=== PATIENT | female | born 1950 | race American Indian/Alaskan Native ===

== ENCOUNTER 2017-03-31 09:38 | Outpatient (CLI) | payer MEDICARE ==
--- NOTE | 2017-03-31 10:48 | Mammography Report ---
BILATERAL MAMMOGRAM: FINDINGS: The breast tissue is heterogeneously dense, which could obscure detection of small masses (approximately 50%-75% glandular). No mass, distortion, suspicious calcification, or skin change is seen. No significant changes compared to prior exams dating back to March 2015. CAD was utilized. IMPRESSION: Negative mammogram. There is no mammographic evidence of malignancy. RECOMMENDATION: Follow-up per ACS guidelines. BI-RADS CATEGORY: 1 = Negative ACR BI-RADS MAMMOGRAPHIC CODES: 0 = Needs additional imaging evaluation; 1 = Negative; 2 = Benign; 3 = Probably benign; 4 = Suspicious; 5 = Malignant; 6 = Known biopsy-proven malignancy COMMENT: 1. Dense breast tissue, i.e., adenosis, fibrocystic changes, etc., may obscure an underlying neoplasm. 2. Approximately 10% of cancers are not detected with mammography. 3. A negative mammography report should not delay biopsy if a clinically suspicious mass is present. COMMENT: Patient follow-up letters are generated in [email or web address].
== END 2017-03-31 09:39 | disposition home or self-care (01) ==
LOC: MAMMO 09:38
PROVIDERS: ATTEND Family Medicine
DX: Z12.31 Encounter for screening mammogram for malignant neoplasm of breast (principal); I10 Essential (primary) hypertension
CPT/HCPCS: 77067; G0202

== ENCOUNTER 2017-08-16 10:14 | Outpatient (CLI) | payer MEDICARE ==
[2017-08-16 10:45] LABS: Blood Urea Nitrogen 9 mg/dL (7-17)
--- NOTE | 2017-08-16 14:02 | Magnetic Resonance Report ---
MRI BRAIN WITH/WITHOUT CONTRAST: History: Headache, unstable gait, dizziness. Comparison: No relevant comparisons at this facility. Technique: Multiple T1 and T2 weighted images were obtained in multiple planes. Axial diffusion and gradient imaging was performed. Post contrast T1 images in two planes were obtained following IV gadolinium. Findings: There are moderate nonspecific T2 signal abnormalities in the white matter bilaterally. These findings could be related to chronic small vessel disease, hypertension, diabetes, demyelination and many other etiologies. None of these areas enhance suggesting a chronic process. Otherwise, the brain parenchyma demonstrates normal signal on all sequences. No diffusion restriction, hemorrhage, mass effect or extra-axial fluid collection. Ventricular size is normal and symmetric. The basal cisterns are clear. The brainstem and cerebellar hemispheres are within normal limits. The fourth ventricle is midline. The paranasal sinuses and mastoid air cells are well aerated. Normal flow voids are identified in the appropriate vessels at the craig of [place]. No abnormal enhancement is identified following IV gadolinium. Impression: Nonspecific chronic white matter changes as described. No evidence for an acute process or abnormal enhancement.
== END 2017-08-16 10:15 | disposition home or self-care (01) ==
LOC: MRI 10:14
PROVIDERS: ATTEND Family Medicine
DX: R90.82 White matter disease, unspecified (principal); R42 Dizziness and giddiness; R26.81 Unsteadiness on feet; R51 Headache
CPT/HCPCS: 36415; 70553; 82565; 84520; A9577

== ENCOUNTER 2018-04-04 07:56 | Outpatient (CLI) | payer MEDICARE ==
--- NOTE | 2018-04-04 09:12 | Mammography Report ---
Screening mammogram: The breast pattern is heterogeneously dense and symmetrically distributed bilaterally. There is no focal mass nor architectural distortion appreciated. Several tight clusters of microcalcifications are identified in the upper outer right breast which appear to have remained generally stable since prior examinations dating back to at least 2016 and possibly 2015. No overtly suspicious characteristics. The findings are not otherwise remarkable. CAD used. Impression: Seemingly stable groupings of benign-appearing right breast microcalcifications. Recommendation: Annual mammogram followup. BI-RADS CATEGORY: 2 = Benign ACR BI-RADS MAMMOGRAPHIC CODES: 0 = Needs additional imaging evaluation; 1 = Negative; 2 = Benign; 3 = Probably benign; 4 = Suspicious; 5 = Malignant; 6 = Known biopsy-proven malignancy COMMENT: 1. Dense breast tissue, i.e., adenosis, fibrocystic changes, etc., may obscure an underlying neoplasm. 2. Approximately 10% of cancers are not detected with mammography. 3. A negative mammography report should not delay biopsy if a clinically suspicious mass is present.
== END 2018-04-04 07:57 | disposition home or self-care (01) ==
LOC: MAMMO 07:56
PROVIDERS: ATTEND Obstetrics & Gynecology
DX: Z12.31 Encounter for screening mammogram for malignant neoplasm of breast (principal); I10 Essential (primary) hypertension
CPT/HCPCS: 77067

== ENCOUNTER 2019-04-06 09:04 | Outpatient (CLI) | payer MEDICARE ==
--- NOTE | 2019-04-06 15:06 | Mammography Report ---
DIGITAL SCREENING MAMMOGRAM WITH CAD, 04/06/2019 INDICATION: Routine screening mammography. TECHNIQUE: Digital bilateral 2D mammography was obtained in the craniocaudal and mediolateral obliq ue projections. This examination was interpreted with the benefit of Computer-Aided Detection analysi s. COMPARISON: 04/04/2018 FINDINGS: Breast Density: The breasts are heterogeneously dense, which may obscure small masses. There is no evidence of dominant mass, suspicious calcifications or architectural distortion in eithe r breast. Stable bilateral calcifications with benign morphology. There are greater number of calcifi cations in the upper outer right breast and they are largely amorphous. IMPRESSION: No mammographic evidence of malignancy. Follow up recommendation: Routine yearly BI-RADS Category 2: Benign. A "normal" or negative report should not discourage follow up or biopsy of a clinically significant f inding. A written summary of these findings will be mailed to the patient. The patient will be entered into a mammography reporting system which will generate a reminder letter for the patient's next appointmen t at the appropriate interval. The [employer] recommends yearly mammograms starting at age 40 and continuing as l man as a woman is in good health. Breast MRI is recommended for women with an approximate 20-25% or greater lifetime risk of breast cancer, including women with a strong family history of breast or ova herman cancer or who have been treated for Hodgkin's disease. Signer Name: Jose De Jesus Kyle MD Signed: 04/06/2019 3:02 PM Workstation Name: [id number]
== END 2019-04-06 09:05 | disposition home or self-care (01) ==
LOC: MAMMO 09:04
PROVIDERS: ATTEND Obstetrics & Gynecology
DX: Z12.31 Encounter for screening mammogram for malignant neoplasm of breast (principal); I10 Essential (primary) hypertension
CPT/HCPCS: 77067

== ENCOUNTER 2020-04-09 09:09 | Outpatient (CLI) | payer MEDICARE ==
--- NOTE | 2020-04-09 10:15 | Mammography Report ---
DIGITAL SCREENING MAMMOGRAM WITH CAD, 04/09/2020 INDICATION: Routine screening mammography. TECHNIQUE: Digital bilateral 2D mammography was obtained in the craniocaudal and mediolateral obliq ue projections. This examination was interpreted with the benefit of Computer-Aided Detection analysi s. COMPARISON: 04/06/2019, 04/04/2018 FINDINGS: Breast Density: The breasts are heterogeneously dense, which may obscure small masses. Pleomorphic calcifications in the upper outer quadrant anterior/middle depth of the right breast have increased in number. No other significant abnormality of the right breast. Stable nodule/node in the 3:00 position anterior depth of the left breast. Stable left breast calcifications. No other signifi cant abnormality of the left breast. IMPRESSION: Suspicious right breast calcifications. A diagnostic right mammogram with magnification views is gissel mmended for further evaluation. Follow up recommendation: Special View: Mag Category 0: Incomplete. Needs additional imaging evaluation and/or prior mammograms for comparison. A "normal" or negative report should not discourage follow up or biopsy of a clinically significant f inding. A written summary of these findings will be mailed to the patient. The patient will be entered into a mammography reporting system which will generate a reminder letter for the patient's next appointmen t at the appropriate interval. The [employer] recommends yearly mammograms starting at age 40 and continuing as l man as a woman is in good health. Breast MRI is recommended for women with an approximate 20-25% or greater lifetime risk of breast cancer, including women with a strong family history of breast or ova herman cancer or who have been treated for Hodgkin's disease. Signer Name: Rigoberto Foster MD Signed: 04/09/2020 10:10 AM Workstation Name: [id number]
== END 2020-04-09 09:10 | disposition home or self-care (01) ==
LOC: MAMMO 09:09
PROVIDERS: ATTEND Obstetrics & Gynecology
DX: Z12.31 Encounter for screening mammogram for malignant neoplasm of breast (principal); N60.01 Solitary cyst of right breast; N64.89 Other specified disorders of breast
CPT/HCPCS: 77067

== ENCOUNTER 2020-05-15 09:21 | Outpatient (CLI) | payer MEDICARE ==
--- NOTE | 2020-05-15 10:31 | Mammography Report ---
DIGITAL DIAGNOSTIC MAMMOGRAM, -- 05/15/2020 INDICATION: Follow-up of indeterminate right breast calcifications. TECHNIQUE: Digital right mammographic imaging was performed. Magnification views were obtained. COMPARISON: 04/06/2019, 04/04/2018 FINDINGS: Breast Density: The breast is heterogeneously dense, which may obscure small masses. Previously described pleomorphic calcifications in the upper outer quadrant depth of the right breast are again seen without a suspicious associated mass or area of architectural distortion. IMPRESSION: Suspicious right breast calcifications should be further evaluated with stereotactic biopsy. Recommended Follow-Up: Biopsy BI-RADS Category 4: Suspicious for Malignancy. A "normal" or negative report should not discourage follow up or biopsy of a clinically significant f inding. A written summary of these findings will be mailed to the patient. The patient will be entered into a mammography reporting system which will generate a reminder letter for the patient's next appointmen t at the appropriate interval. According to the [employer], yearly mammograms are recommended starting at age 40 and continuing as long as a woman is in good health. Breast MRI is recommended for women with an shoaib roximately 20-25% or greater lifetime risk of breast cancer, including women with a strong family his tory of breast or ovarian cancer and women who have been treated for Hodgkin's disease. Signer Name: Rigoberto Foster MD Signed: 05/15/2020 10:27 AM Workstation Name: [email or web address] [id number]
== END 2020-05-15 09:22 | disposition home or self-care (01) ==
LOC: MAMMO 09:21
PROVIDERS: ATTEND Obstetrics & Gynecology
DX: R92.8 Other abnormal and inconclusive findings on diagnostic imaging of breast (principal)

== ENCOUNTER 2020-05-28 13:10 | Outpatient (CLI) | payer MEDICARE ==
--- NOTE | 2020-05-28 16:17 | Mammography Report ---
RIGHT DIAGNOSTIC MAMMOGRAM INDICATION: Recent right breast stereotactic biopsy of calcifications. COMPARISON: 05/15/2020, 04/09/2020. FINDINGS: Right breast CC and ML mammograms were obtained. These document accurate location of a biop sy marker in the right lateral breast at middle depth at the site of recent stereotactic biopsy. Resi dual calcifications persist. IMPRESSION: Mammographic images documenting accurate location of recent right lateral breast stereotactic biopsy. BI-RADS Category 4: Suspicious for Malignancy. Signer Name: Kyle Becerra MD Signed: 05/28/2020 4:12 PM Workstation Name: [id number]
--- NOTE | 2020-05-28 16:32 | Mammography Report ---
PERCUTANEOUS STEREOTACTIC-GUIDED RIGHT BREAST BIOPSY WITH MARKER PLACEMENT HISTORY: Right breast calcifications. CONSENT: Technique, risks and alternatives were discussed with the patient and informed written conse nt obtained. PROCEDURE: The patient was placed in the prone position on the Siemens biopsy table. The calcifications in the r ight lateral breast were targeted mammographically. Fire Prevention Officer and stereo pair images were acquired to gen erate the computer-derived coordinates for targeting. The skin overlying the chosen biopsy site were cleansed with Betadine. The skin and superficial soft tissues were anesthetized with a small amount of buffered 1% lidocaine. The deeper soft tissues were anesthetized with buffered 1% lidocaine with epinephrine. A small dermatotomy was created through which the Atec biopsy device was placed. Pre and post fire st ereo pair images were acquired to confirm appropriate needle trajectory. Using vacuum assistance, mul tiple core specimen samples were acquired. A post procedure stereo pair image suggested adequate samp ling of the target. A post procedure specimen radiograph confirmed calcifications within core specime n samples. A biopsy marker was deposited at the biopsy site. Manual pressure was applied at the biopsy site to achieve hemostasis. The incision margins were appro ximated with Steri-Strips. A post procedure left breast mammogram was acquired. Postprocedure care in structions were administered in both verbal and written forms. The patient voiced understanding and d eparted the [facility] in stable, satisfactory condition. POST PROCEDURE RIGHT BREAST MAMMOGRAM: Digital CC and MLO views demonstrate the biopsy marker to lie within the lateral position of the breast with persistent adjacent calcifications present. IMPRESSION Technically successful stereotactic biopsy of right lateral breast calcifications with accurate biops y marker placement. An addendum will be added to this report once pathology results are available. Signer Name: yKle Becerra MD Signed: 05/28/2020 4:27 PM Workstation Name: [id number]
== END 2020-05-28 13:11 | disposition home or self-care (01) ==
LOC: SPVWC 13:10
PROVIDERS: ATTEND Surgery
DX: R92.1 Mammographic calcification found on diagnostic imaging of breast (principal); R92.8 Other abnormal and inconclusive findings on diagnostic imaging of breast; I10 Essential (primary) hypertension
CPT/HCPCS: 19081; 77065; 88305; A4648; 88341; 88342

== ENCOUNTER 2020-06-25 09:17 | Outpatient (CLI) | payer MEDICARE | END 2020-06-25 09:18 | disposition home or self-care (01) | LOC: SPVIMAG 09:17 | PROVIDERS: ATTEND Surgery | DX: C50.411 Malignant neoplasm of upper-outer quadrant of right female breast (principal) | CPT/HCPCS: A9577; C8908; 77049 ==

== ENCOUNTER → 2020-07-28 | Day surgery (SDC) | payer MEDICARE ==
[~2020-07-28] MED LIST: ACETAMINOPHEN 325 MG TAB PO NR; BACITRACIN ZINC OINT 28.4 GM TP ONE; BUPIVACAINE-EPINEPHRINE/PF 0.25%-1:200,000 (30 ML) VIAL INFILTRATI ONE; GABAPENTIN 500 MG/10 ML ORAL LIQD PO NR; GLYCOPYRROLATE 0.4 MG/2 ML INJ ONE; HYDROmorphone 1 MG/1 ML INJ IV PRN; HYDROmorphone 1 MG/1 ML INJ ONE; LACTATED RINGERS 1,000 ML IV SCH; LACTATED RINGERS 1,000 ML ONE; LIDOCAINE (1%) 10 MG/1 ML VIAL 20 ML MDV ONE; LIDOCAINE MPF (2%) 20 MG/1 ML VIAL 5 ML ONE; MAGNESIUM OXIDE 400 MG TAB PO NR; METHYLENE BLUE 50 MG/10 ML AMP IRRIGATION ONE; METHYLENE BLUE 50 MG/10 ML AMP ONE; MIDAZOLAM 2 MG/2 ML INJ IV NR; NEOSTIGMINE 10MG/10 ML INJ MDV ONE; ONDANSETRON 4 MG/2 ML INJ IV PRN; ONDANSETRON 4 MG/2 ML INJ ONE; PHENYLEPHRINE/NS 1,000 MCG/10 ML SYRINGE (OR USE) IV ONE; ROCURONIUM 50 MG/5 ML INJ IV ONE; SODIUM CHLORIDE 0.9% P/F 10 ML VIAL INFILTRATI ONE; WATER FOR IRRIG STERILE 1,500 ML BOTTLE IR ONE; ceFAZolin/STERILE WATER 2 GM/20 ML SYRINGE IV NR; dexAMETHasone 20 MG/5 ML VIAL ONE; dexAMETHasone 4 MG/ML VIAL ONE; fentaNYL 100 MCG/2 ML INJ IV NR; propofoL 200 MG/20 ML VIAL IV ONE
--- NOTE | 2020-07-28 09:52 | Anesthesia Day of Surgery ---
Anesthesia Day of Surgery - Day of Surgery Patient Examined: Yes Patient H&P Reviewed: Yes Patient is NPO: Yes Cardiac Clearance: Yes
--- NOTE | 2020-07-28 09:53 | Anesthesia Consultation ---
Anesthesia Consult and Med Hx Date of service: 07/28/20 - Airway Anesthetic Teeth Evaluation: Chipped ROM Head & Neck: Adequate Mental/Hyoid Distance: Adequate Mallampati Class: Class III Intubation Access Assessment: Probably Good - Pre-Operative Health Status ASA Pre-Surgery Classification: ASA3 Proposed Anesthetic Plan: General Nerve Block: ES/PECS - Pulmonary Hx Smoking: No Hx Asthma: No Hx Respiratory Symptoms: No (+2FS) COPD: No Hx Pneumonia: No Hx Sleep Apnea: Yes (DX SLEEP APNEA WITH CPAP USE.) - Cardiovascular System Hx Hypertension: Yes (GOES UP AND DOWN) Hx Heart Attack/AMI: No (+Cardiac Clearance) Hx Pacemaker: No Hx Internal Defibrillator: No Hx Heart Murmur: No - Central Nervous System Hx Seizures: No Hx Back Pain: Yes (NUMBNESS,PAIN ARMS-TINGLING RT HAND) Hx Psychiatric Problems: Yes - Gastrointestinal Hx Gastroesophageal Reflux Disease: Yes (Rare-dietary) - Endocrine Hx End Stage Renal Disease: No Hx Cirrhosis: No Hx Liver Disease: No Hx Non-Insulin Dependent Diabetes: No Hx Thyroid Disease: No - Hematic Hx Anemia: No Hx Sickle Cell Disease: No - Other Systems Hx Alcohol Use: No Hx Substance Use: No Hx Cancer: Yes Hx Obesity: No - Additional Comments Anesthesia Medical History Comments: NO BLOOD
--- NOTE | 2020-07-28 10:14 | Mammography Report ---
RIGHT BREAST NEEDLE LOCALIZATION USING X-RAY GUIDANCE The procedure was explained to the patient and informed consent obtained. PROCEDURE: Using 5 mL of 1% buffered lidocaine, a 25 gauge needle and x-ray guidance, the large area of pleomorphic calcifications in the lateral right breast were bracketed using 2 separate 7.5 cm loc alization wires. Appropriate placement of these wires was discussed with Dr. Amaro and Dr. Grey on. There were no immediate complications. INTERPRETATION: 7 images made during the procedure demonstrate the needle to be properly positioned. IMPRESSION: Successful right breast lesion localization as described above. Thank you for allowing us to participate in the care of your patient. Signer Name: Madhav Vanessa Jr, MD Signed: 07/28/2020 10:10 AM Workstation Name: [id number]
--- NOTE | 2020-07-28 14:55 | Operative Report ---
Operative Report Operative Report: Operative Report: July 28, 2020 Preoperative diagnosis: Right breast cancer of the upper outer quadrant Postoperative diagnosis: Same Procedure: Right breast needle localization partial mastectomy of the upper outer quadrant with SLNB Surgeon: Maria Teresa Amaro MD Lime Slaker: Dorinda Ferrer Anesthesia: General Findings: Right wires and clip present within radiograph specimen; x2 SLNs Complications: None EBL: Less than 50 cc Disposition: PACU in good condition Indications for operative procedure: This is a 70 year old lady with newly diagnosed Stage 0 right breast cancer of the upper outer quadrant, Stage 0 [id number] ER positive. Recommendations are to proceed with breast conservation with bracketing of the area of known malignancy and patient understood if margins were positive additional surgery indicated that may include a right total mastectomy. Breast MRI with findings of 6.5 cm area of nonmass enhancement. Radiology to place wire bracket at location of known cancer and additional area of suspicious microcalcifications correlating to nonmass enhancement on breast MRI. She understands the role of adjuvant radiation therapy and Oncotype DX will be obtained by medical oncology if invasive carcinoma identified on final pathology. She wished to proceed with the above procedure. Procedure in detail: The patient was taken to radiology for wire placement for localization known area of cancer and area of microcalifications correlating to nonmass enhancment seen on breast MRI. Anesthesia placed right pectoral block. Patient was then taken to the operating room. Gen. anesthesia was administered. The right nipple was injected with radioisotope and 1 cc of methylene blue dye. Right breast and axilla were prepped and draped in the normal sterile operative fashion. The wires were identified. Timeout was performed. Gamma probe was inserted into the axilla. The area of hot spot was identified. A right axillary incision was made with a 15 blade knife with dissection taken down to the subcutaneous tissues. The axillary fascia was opened with the Bovie cautery. 2 SLNs were identified and dissected free. All remaining counts were less than 10% of the highest count. Lymph nodes were sent to pathology for permanent processing. Hemostasis was obtained in the right axillary cavity. Axillary cavity was appropriately irrigated and suctioned. Hemostasis was noted. Axillary fascia was approximated and closed using interrupted 3-0 Vicryl and the skin brought together and closed using a running 4-0 Monocryl followed by skin affix. Attention was then taken towards the right breast. Lateral breast incision around 9:00 position was made with a 15 blade knife and dissection taken down to subcutaneous tissues. First began raising of the lateral flap with removal of the wire from the skin with dissection taken laterally past the area of known maglignancy and then taken down to the pectoralis muscle, followed by raising of the inferior flap, superior flap and lateral flap with all flaps taken past the area of known malignancy and then posteriorly down to the pectoralis muscle. Upon raising of the medial flap, wire was removed from the skin. The breast area of concern was appropriately removed posteriorly from the pectoralis muscle with the aid of the Bovie cautery. The wires were not encountered. Specimen was marked and then sent to pathology and radiology; radiograph specimen with wires and clip present. Breast cavity was irrigated and hemostasis was obtained. Then proceeded with complex closure; defect area 8 cm. The posterior deep breast tissues were mobilized and then approximated and closed using interrupted 3-0 Vicryl. The subcutaneous tissues were then approximated and closed using interrupted 3-0 Vicryl followed by closing of the skin with a running 4-0 Monocryl and skin affix. The patient tolerated surgery very well and she was awaken from anesthesia without any complication and transported to PACU in good condition.
--- NOTE | 2020-07-28 14:58 | Short Stay Summary ---
Short Stay Documentation Date of service: 07/28/20 - History H&P: obtained from office - Allergies and Medications Current Medications: Allergies erythromycin base Allergy (Verified 07/17/15 15:12) Vomiting Sulfa (Sulfonamide Antibiotics) Allergy (Verified 07/17/15 15:12) Swelling Home Medications Medication Instructions Recorded Confirmed Last Taken Type Adult Probiotic 1 cap PO DAILY 07/21/20 07/21/20 07/27/20 History Alendronate Sodium/Vitamin D3 1 tab PO DAILY 07/21/20 07/21/20 07/27/20 History Cinnamon 1 cap PO DAILY 07/21/20 07/21/20 07/27/20 History Evening [place] Oil 1 cap PO DAILY 07/21/20 07/21/20 07/27/20 History Garlic 1 tab PO DAILY 07/21/20 07/21/20 07/27/20 History Geritol Complete Tablet 1 tab PO DAILY 07/21/20 07/21/20 07/27/20 History Immunicare Capsule 1 packet PO DAILY 07/21/20 07/21/20 07/27/20 History Lisinopril 5 mg [place] DAILY 07/21/20 07/21/20 07/28/20 06:30 History Simvastatin 20 mg PO DAILY 07/21/20 07/21/20 07/27/20 History Tylenol 500 mg PO PRN PRN 07/21/20 07/21/20 07/27/20 History oxyCODONE /ACETAMINOPHEN [Percocet 1 tab PO Q6HR PRN #20 tablet 07/28/20 Unknown Rx 5/325] Active Medications Cefazolin Sodium (Cefazolin/Sterile Water 2 Gm/20 Ml Syringe) 2 gm IV PREOP NR Stop: 07/28/20 20:00 Fentanyl (Fentanyl 100 Mcg/2 Ml Inj) 100 mcg IV ONCE NR Stop: 07/28/20 20:00 Last Admin: 07/28/20 10:40 Dose: 100 mcg Documented by: Hydromorphone HCl (Hydromorphone 1 Mg/1 Ml Inj) 0.25 mg IV Q10MIN PRN PRN Reason: Pain, Moderate (4-6) Stop: 07/28/20 20:00 Hydromorphone HCl (Hydromorphone 1 Mg/1 Ml Inj) 0.5 mg IV Q10MIN PRN PRN Reason: Pain , Severe (7-10) Stop: 07/28/20 22:00 Lactated Ringer's (Lactated Ringers) 1,000 mls @ 100 mls/hr IV DIRECT GALILEO Last Admin: 07/28/20 10:20 Dose: 100 mls/hr Documented by: Midazolam HCl (Midazolam 2 Mg/2 Ml Inj) 2 mg IV PREOP NR Stop: 07/28/20 23:59 Last Admin: 07/28/20 10:40 Dose: 2 mg Documented by: - Brief post op/procedure progress note Date of procedure: 07/28/20 Pre-op diagnosis: Right breast cancer upper outer quadrant Post-op diagnosis: same Procedure: Right needle localization partial mastectomy and SLNB Anesthesia: GETA Findings: Right wires and clip present; x2 SLNs Surgeon: KAREN GOMEZ Estimated blood loss: other (50 cc) Pathology: list (right partial mastectomy; x2 slns) Specimen disposition: to lab Condition: stable - Disposition Condition at discharge: Good Disposition: DC-01 TO HOME OR SELFCARE Short Stay Discharge Plan Activity: other (no heavy lifting) Diet: regular Wound: keep clean and dry (wear breast binder; apply bacitracin twice daily; may showere in 48 hours; no baths, pools or lakes) Follow up with: KAREN GOMEZ MD [Staff Physician] - 7 Days Prescriptions: oxyCODONE /ACETAMINOPHEN [Percocet 5/325] 1 tab PO Q6HR PRN #20 tablet PRN Reason: Pain
--- NOTE | 2020-07-28 15:19 | Mammography Report ---
MAMMOGRAPHY SURGICAL SPECIMEN HISTORY: Excisional biopsy, right breast calcifications COMPARISON: Needle localization films performed earlier today. FINDINGS: 2 images of the specimen are presented with compression and without compression. The specim en contains 2 localization wires and a biopsy clip. Numerous subtle calcifications are noted between the localization needles. Please correlate with the surgical pathology report for margins. IMPRESSION: Successful excisional biopsy of the right breast calcifications. Signer Name: Madhav Vanessa Jr, MD Signed: 07/28/2020 3:15 PM Workstation Name: [id number]
--- NOTE | 2020-07-28 17:22 | Post Anesthesia Evaluation ---
- Post Anesthesia Evaluation Patient Participated: Yes Airway Patent: Yes Stable Respiratory Function: Yes Nausea/Vomiting: No Temp > 96.8F: Yes Pain Manageable: Yes Adequeate Hydration: Yes Anesthesia Complications: No Block Receding Appropriately: Yes Patient on Ventilator: No
[2020-07-28 20:00] VITALS: BP 144/64
== END | disposition home or self-care (01) ==
LOC: OR 08:28
PROVIDERS: ATTEND Surgery
DX: C50.411 Malignant neoplasm of upper-outer quadrant of right female breast (principal); Z20.828 Contact with and (suspected) exposure to other viral communicable diseases; I89.8 Other specified noninfective disorders of lymphatic vessels and lymph nodes; Z17.1 Estrogen receptor negative status [ER-]; M19.90 Unspecified osteoarthritis, unspecified site; F32.9 Major depressive disorder, single episode, unspecified; E78.00 Pure hypercholesterolemia, unspecified; G47.30 Sleep apnea, unspecified; K21.9 Gastro-esophageal reflux disease without esophagitis; Z90.721 Acquired absence of ovaries, unilateral; Z88.8 Allergy status to other drugs, medicaments and biological substances; Z79.899 Other long term (current) drug therapy; Z88.2 Allergy status to sulfonamides; Z98.41 Cataract extraction status, right eye; Z98.42 Cataract extraction status, left eye; Z98.890 Other specified postprocedural states; Z98.51 Tubal ligation status; Z87.440 Personal history of urinary (tract) infections
CPT/HCPCS: 19281; 19301; 38525; 38792; 64450; 76098; 76942; 78800; 82962; 88307; 88309; 88333; A9541; J0690; J1100; J1170; J2250; J2370; J2405; J2704; J2710; J3010; J7120; Q9968; U0003; 88341; 88342

== ENCOUNTER 2020-09-19 09:42 | Observation (INO) | payer MEDICARE ==
--- NOTE | 2020-09-15 09:46 | Anesthesia Consultation ---
Anesthesia Consult and Med Hx Date of service: 09/15/20 - Airway Anesthetic Teeth Evaluation: Partials (upper and lower) ROM Head & Neck: Adequate Mental/Hyoid Distance: Adequate Mallampati Class: Class II Intubation Access Assessment: Probably Good - Pre-Operative Health Status ASA Pre-Surgery Classification: ASA3 Proposed Anesthetic Plan: General Nerve Block: PEC - Pulmonary Hx Smoking: No Hx Asthma: No Hx Respiratory Symptoms: No (+2FS) COPD: No Hx Pneumonia: No Hx Sleep Apnea: Yes (DX SLEEP APNEA WITH CPAP USE.) - Cardiovascular System Hx Hypertension: Yes (GOES UP AND DOWN) Hx Coronary Artery Disease: No (high cholesterol) - Central Nervous System Hx Seizures: No Hx Back Pain: Yes (NUMBNESS,PAIN ARMS-TINGLING RT HAND) Hx Psychiatric Problems: Yes - Gastrointestinal Hx Gastroesophageal Reflux Disease: Yes (Rare-dietary) - Endocrine Hx End Stage Renal Disease: No Hx Cirrhosis: No Hx Liver Disease: No Hx Non-Insulin Dependent Diabetes: No Hx Thyroid Disease: No - Other Systems Hx Alcohol Use: No Hx Substance Use: No Hx Cancer: Yes Hx Obesity: No - Additional Comments Anesthesia Medical History Comments: Patient objects blood and blood products
[2020-09-15 10:12] LABS: Alanine Aminotransferase 30 units/L (7-56); Albumin 4.2 g/dL (3.9-5); BUN/Creatinine Ratio 15; Blood Urea Nitrogen 12 mg/dL (7-17); Calcium 9.4 mg/dL (8.4-10.2); Hemolysis Index 0
[2020-09-15 10:17] LABS: Basophils % (Auto) 0.3 % (0.0-1.8); Eosinophils # (Auto) 0.1 K/mm3 (0.0-0.4); Eosinophils % (Auto) 1.8 % (0.0-4.3); Hematocrit 43.1 % (30.3-42.9); Hemoglobin 14.5 gm/dl (10.1-14.3); Lymphocytes # (Auto) 1.1 K/mm3 (1.2-5.4); Lymphocytes % (Auto) 19.6 % (13.4-35.0); Mean Corpuscular HGB Conc 34 % (30-34); Mean Corpuscular Volume 98 fl (79-97); Monocytes # (Auto) 0.5 K/mm3 (0.0-0.8); Monocytes % (Auto) 7.8 % (0.0-7.3); Platelet Count 306 K/mm3 (140-440); Red Blood Count 4.42 M/mm3 (3.65-5.03); Red Cell Distribution Width 13.3 % (13.2-15.2)
[~2020-09-19 09:42] MED LIST changes: -ACETAMINOPHEN 325 MG TAB PO NR; -BACITRACIN ZINC OINT 28.4 GM TP ONE; -BUPIVACAINE-EPINEPHRINE/PF 0.25%-1:200,000 (30 ML) VIAL INFILTRATI ONE; +CELECOXIB 200 MG CAP PO NR; +FAMOTIDINE 20 MG/2 ML INJ IV NR; -GLYCOPYRROLATE 0.4 MG/2 ML INJ ONE; -HYDROmorphone 1 MG/1 ML INJ IV PRN; -HYDROmorphone 1 MG/1 ML INJ ONE; -LACTATED RINGERS 1,000 ML ONE; -LIDOCAINE (1%) 10 MG/1 ML VIAL 20 ML MDV ONE; -LIDOCAINE MPF (2%) 20 MG/1 ML VIAL 5 ML ONE; -MAGNESIUM OXIDE 400 MG TAB PO NR; -METHYLENE BLUE 50 MG/10 ML AMP IRRIGATION ONE; -METHYLENE BLUE 50 MG/10 ML AMP ONE; -NEOSTIGMINE 10MG/10 ML INJ MDV ONE; -ONDANSETRON 4 MG/2 ML INJ IV PRN; -ONDANSETRON 4 MG/2 ML INJ ONE; -PHENYLEPHRINE/NS 1,000 MCG/10 ML SYRINGE (OR USE) IV ONE; -ROCURONIUM 50 MG/5 ML INJ IV ONE; +SCOPOLAMINE TRANSDERMAL PATCH 72 HR TD NR; -SODIUM CHLORIDE 0.9% P/F 10 ML VIAL INFILTRATI ONE; -WATER FOR IRRIG STERILE 1,500 ML BOTTLE IR ONE; -ceFAZolin/STERILE WATER 2 GM/20 ML SYRINGE IV NR; +ceFAZolin/Water 2 GM/20 ML 2 GM/20 ML SYRINGE IV NR; -dexAMETHasone 20 MG/5 ML VIAL ONE; -dexAMETHasone 4 MG/ML VIAL ONE; -propofoL 200 MG/20 ML VIAL IV ONE
[2020-09-19] MEDS ORDERED: BACTERIOSTATIC SODIUM CHLORIDE 0.9% 30 ML VIAL INFILTRATI ONE (10:07)
[2020-09-19] MEDS ORDERED: dexAMETHasone 4 MG/ML VIAL ONE (10:15)
[2020-09-19] MEDS ORDERED: BUPIVACAINE-EPINEPHRINE/PF 0.5%-1:200,000 (30 ML) VIAL INFILTRATI ONE (10:15)
[2020-09-19] MEDS ORDERED: fentaNYL 100 MCG/2 ML INJ IV PRN (10:19)
--- NOTE | 2020-09-19 10:19 | Anesthesia Day of Surgery ---
Anesthesia Day of Surgery - Day of Surgery Patient Examined: Yes Patient H&P Reviewed: Yes Patient is NPO: Yes
[2020-09-19] MEDS ORDERED: ONDANSETRON 4 MG/2 ML INJ IV PRN ×2 (10:30→14:42)
[2020-09-19] MEDS ORDERED: fentaNYL 100 MCG/2 ML INJ ONE ×2 (11:18→12:31)
[2020-09-19] MEDS ORDERED: propofoL 200 MG/20 ML VIAL IV ONE (11:18)
[2020-09-19] MEDS ORDERED: WATER FOR IRRIG STERILE 1,500 ML BOTTLE IR ONE ×2 (12:53)
[2020-09-19] MEDS ORDERED: ePHEDrine SULFATE 50 MG/1 ML INJ ONE (13:28)
[2020-09-19] MEDS ORDERED: SODIUM CHLORIDE P/F VIAL 10 ML 20 ML ONE (13:53)
[2020-09-19] MEDS ORDERED: diphenhydrAMINE 50 MG/ML VIAL ONE (13:53)
[2020-09-19] MEDS ORDERED: LIDOCAINE MPF (2%) 20 MG/1 ML VIAL 5 ML ONE (14:30)
[2020-09-19] MEDS ORDERED: ONDANSETRON 4 MG/2 ML INJ ONE (14:30)
[2020-09-19] MEDS ORDERED: PHENYLEPHRINE/NS 1,000 MCG/10 ML SYRINGE (OR USE) IV ONE (14:30)
[2020-09-19] MEDS ORDERED: dexAMETHasone 20 MG/5 ML VIAL ONE (14:30)
[2020-09-19] MEDS ORDERED: SUCCINYLCHOLINE CHLORIDE 200 MG/10 ML INJ MDV ONE (14:30)
[2020-09-19] MEDS ORDERED: GLYCOPYRROLATE 0.4 MG/2 ML INJ ONE (14:35)
[2020-09-19] MEDS ORDERED: NEOSTIGMINE 10MG/10 ML INJ MDV ONE (14:35)
[2020-09-19] MEDS ORDERED: METOCLOPRAMIDE 10 MG TAB PO PRN (14:42)
[2020-09-19] MEDS ORDERED: oxyCODONE /ACETAMINOPHEN 5-325MG TAB PO PRN (14:42)
[2020-09-19] MEDS ORDERED: diphenhydrAMINE 25 MG CAP PO PRN (14:42)
[2020-09-19] MEDS ORDERED: HYDROmorphone 2 MG TAB PO PRN (14:42)
[2020-09-19] MEDS ORDERED: ACETAMINOPHEN 325 MG TAB PO PRN (14:42)
[2020-09-19] MEDS ORDERED: MORPHINE 2 MG/1 ML INJ IV PRN (14:43)
[2020-09-19] MEDS ORDERED: LACTATED RINGERS 1,000 ML IV SCH (14:45)
--- NOTE | 2020-09-19 14:46 | Short Stay Summary ---
Short Stay Documentation Date of service: 09/19/20 - History H&P: obtained from office - Allergies and Medications Current Medications: Allergies erythromycin base Allergy (Verified 09/12/20 11:50) Vomiting Sulfa (Sulfonamide Antibiotics) Allergy (Verified 09/12/20 11:50) Swelling Home Medications Medication Instructions Recorded Confirmed Last Taken Type Adult Probiotic 1 cap PO DAILY 07/21/20 09/12/20 09/18/20 History Alendronate Sodium/Vitamin D3 1 tab PO DAILY 07/21/20 09/12/20 09/18/20 History Cinnamon 1 cap PO DAILY 07/21/20 09/12/20 09/18/20 History Evening [place] Oil 1 cap PO DAILY 07/21/20 09/19/20 09/17/20 History Garlic 1 tab PO DAILY 07/21/20 09/12/20 09/18/20 History Geritol Complete Tablet 1 tab PO DAILY 07/21/20 09/12/20 09/18/20 History Immunicare Capsule 1 packet PO DAILY 07/21/20 09/12/20 09/18/20 History Lisinopril 5 mg UT DAILY 07/21/20 09/19/20 09/19/20 08:00 History Simvastatin 20 mg PO DAILY 07/21/20 09/12/20 09/18/20 History Tylenol 500 mg PO PRN PRN 07/21/20 09/12/20 09/18/20 History oxyCODONE /ACETAMINOPHEN [Percocet 1 tab PO Q6HR PRN #20 tablet 07/28/20 09/12/20 09/18/20 Rx 5/325] Active Medications Acetaminophen (Acetaminophen 325 Mg Tab) 650 mg PO Q6H PRN PRN Reason: Pain MILD(1-3)/Fever >100.5/LIGHT Celecoxib (Celecoxib 200 Mg Cap) 200 mg PO PREOP NR Stop: 09/19/20 23:00 Last Admin: 09/19/20 10:05 Dose: 200 mg Documented by: Diphenhydramine HCl (Diphenhydramine 25 Mg Cap) 25 mg PO Q8H PRN PRN Reason: Itching Docusate Sodium (Docusate Sodium 100 Mg Cap) 100 mg PO BID GALILEO Famotidine (Famotidine 20 Mg/2 Ml Inj) 20 mg IV PREOP NR Stop: 09/19/20 23:00 Last Admin: 09/19/20 10:04 Dose: 20 mg Documented by: Fentanyl (Fentanyl 100 Mcg/2 Ml Inj) 100 mcg IV ONCE NR Stop: 09/19/20 23:00 Last Admin: 09/19/20 11:21 Dose: 50 mcg Documented by: Fentanyl (Fentanyl 100 Mcg/2 Ml Inj) 50 mcg IV Q5MIN PRN PRN Reason: Pain , Severe (7-10) Stop: 09/19/20 23:00 Gabapentin (Gabapentin 500 Mg/10 Ml Oral Liqd) 150 mg PO PREOP NR Stop: 09/19/20 23:00 Last Admin: 09/19/20 10:05 Dose: 150 mg Documented by: Hydromorphone HCl (Hydromorphone 2 Mg Tab) 2 mg PO Q6H PRN PRN Reason: Pain , Severe (7-10) Cefazolin Sodium (Ancef/Sterile Water 2 Gm/20 Ml) 2 gm in 20 mls @ 80 mls/hr IV PREOP NR; Protocol Stop: 09/19/20 23:01 Lactated Ringer's (Lactated Ringers) 1,000 mls @ 100 mls/hr IV DIRECT GALILEO Stop: 09/19/20 23:00 Last Admin: 09/19/20 10:40 Dose: 100 mls/hr Documented by: Lactated Ringer's (Lactated Ringers) 1,000 mls @ 125 mls/hr IV DIRECT GALILEO Metoclopramide HCl (Metoclopramide 10 Mg Tab) 10 mg PO Q6H PRN PRN Reason: Nausea And Vomiting Midazolam HCl (Midazolam 2 Mg/2 Ml Inj) 2 mg IV PREOP NR Stop: 09/19/20 23:59 Last Admin: 09/19/20 11:21 Dose: 2 mg Documented by: Morphine Sulfate (Morphine 2 Mg/1 Ml Inj) 2 mg IV Q4H PRN PRN Reason: Pain, Moderate (4-6) Ondansetron HCl (Ondansetron 4 Mg/2 Ml Inj) 4 mg IV ONCE PRN PRN Reason: Nausea And Vomiting Ondansetron HCl (Ondansetron 4 Mg/2 Ml Inj) 4 mg IV Q8H PRN PRN Reason: N/V unrelieved by Reglan Oxycodone/Acetaminophen (Oxycodone /Acetaminophen 5-325mg Tab) 1 tab PO Q6H PRN PRN Reason: Pain, Moderate (4-6) Scopolamine (Scopolamine Transdermal Patch 72 Hr) 1 each TD PREOP NR Stop: 09/19/20 23:00 Last Admin: 09/19/20 10:07 Dose: 1 each Documented by: Sodium Chloride (Sodium Chloride 0.9% 10 Ml Flush Syringe) 10 ml IV PRN PRN PRN Reason: LINE FLUSH - Brief post op/procedure progress note Date of procedure: 09/19/20 Pre-op diagnosis: Multicentric right breast cancer Post-op diagnosis: same Procedure: Right total mastectomy Anesthesia: GETA Findings: Right total mastectomy Surgeon: KAREN GOMEZ Estimated blood loss: 50-100ml Pathology: list Specimen disposition: to lab Condition: stable - Disposition Condition at discharge: Good Disposition: DC/TX-02 SHRT-TRM GEN HOSP IP Short Stay Discharge Plan Activity: other (no heavy lifting) Diet: regular Wound: keep clean and dry Follow up with: KAREN GOMEZ MD [Staff Physician] - 7 Days
--- NOTE | 2020-09-19 14:52 | Operative Report ---
Operative Report Operative Report: Date of Service: September 19, 2020 Preoperative diagnosis: Multicentric right breast cancer of the upper outer quadrant Postoperative diagnosis: Same Procedure: Right total mastectomy Surgeon: Maria Teresa Amaro M.D. Spine Surgeon: Rupesh Caceres M.D. Anesthesia: Gen. Findings: Right seroma cavity and scar from recent surgery noted Complications: None Drains: One 19 Fr BILLY Estimated blood loss: 50-100 ml Disposition: PACU in good condition Indications for operative procedure: This is a 70-year-old lady with newly diagnosed multicentric right breast cancer of the upper outer quadrant, [id number] ER positive. On patient underwent a right partial mastectomy with sentinel node biopsy. 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 Recommendations are to proceed with a right total mastectomy given positive margins with extensive disease; other option of margin revision discussed as well and she wished to proceed with a mastectomy. Patient agrees and declined plastic surgery at this time. Oncotype DX will be obtained as well. Procedure in detail: Anesthesia placed right pectoral muscle block prior to going to the operating room. The patient was taken to the operating room and was placed supine. Gen. anesthesia was administered. Bilateral breasts and right axilla was prepped and draped in the normal sterile operative fashion. Timeout was performed. Typical mastectomy incision marking was made. Attention was taken towards the right breast first. A skin incision was made with a 10 blade knife and dissection taken down to the subcutaneous tissues. First began raising of the superior flap to the level of the clavicle superiorly and posteriorly to the pectoralis muscle. Followed by raising of the medial flap to the level of the sternum and posteriorly to the pectoralis muscle. Followed by raising of the lateral flap to the level of the latissimus dorsi muscle and taken down posteriorly. Then proceeded with raising of the inferior flap to the level of the inframammary fold taken posterior to the pectoralis muscle. Seroma cavity and scar tissue was noted from recent surgery. The mastectomy/breast was removed from the pectoralis muscle without incident. The specimen was appropriately marked and sent to pathology. 2 axillary tail lymph nodes were present and sent to pathology as well. Lateral and medial margins revisd given excess skin and lateral margin encompassing prior incision. Hemostasis was noted. The chest wall was irrigated and suctioned. Hemostasis was obtained. One 19 [place] BILLY drain was placed. The subcutaneous tissues were closed using an interrupted 3-0 Vicryl followed by closing of the skin using a running 4-0 Monocryl and dermabond. She tolerated surgery very well and was awaken from anesthesia and transported to PACU in good conidition.
--- NOTE | 2020-09-19 16:06 | Post Anesthesia Evaluation ---
- Post Anesthesia Evaluation Patient Participated: Yes Airway Patent: Yes Stable Respiratory Function: Yes Nausea/Vomiting: No Temp > 96.8F: Yes Pain Manageable: Yes Adequeate Hydration: Yes Anesthesia Complications: No Block Receding Appropriately: Yes (block for post op analgesia)
[2020-09-19] MEDS ORDERED: DOCUSATE SODIUM 100 MG CAP PO SCH (22:00)
--- NOTE | 2020-09-20 08:39 | Progress Note ---
Assessment and Plan This is a 70 year old lady with multicentric Stage I right breast cancer of UOQ ([id number] ER positive), POD#1 right total mastectomy. 1. No acute events overnight. 2. BILLY drain not to bulb suction this am and placed to bulb suction with ed ucation given. 55 cc drained after BILLY placed to suction-will monitor this am. The importance of wearing breast binder discussed and repositioned. 3. Patient ambulating well and pain in good control-patient with no complaints of pain. 4. BILLY education later this morning again. 5. D/C planning for this afternoon. Subjective Date of service: 09/13/20 Principal diagnosis: Right breast cancer UOQ Interval history: POD#1 right total mastectomy Objective - Constitutional Vitals: Vital Signs - 12hr 09/19/20 09/19/20 09/20/20 23:33 23:35 03:59 Temperature 98.4 F 98.0 F Pulse Rate 98 H 76 Respiratory 20 18 Rate Blood Pressure 87/49 100/56 104/47 O2 Sat by Pulse 96 93 Oximetry General appearance: Present: no acute distress - EENT Eyes: PERRL, EOM intact ENT: hearing intact, clear oral mucosa Ears: bilateral: normal - Neck Neck: supple, normal ROM - Respiratory Respiratory effort: normal - Breasts Breasts: other (right chest incision c/d/i; skin well perfused; no hematoma; BILLY drain placed to bulb suction and binder repositioned; nontender) - Cardiovascular Rhythm: regular Extremities: no ischemia, pulses intact, pulses symmetrical, No edema, normal temperature, normal color, Full ROM - Gastrointestinal General gastrointestinal: Present: soft, non-tender, non-distended Rectal Exam: deferred - Genitourinary Female genitourinary: deferred - Integumentary Integumentary: clear, warm, dry - Musculoskeletal Musculoskeletal: strength equal bilaterally - Neurologic Neurologic: CNII-XII intact, moves all extremities, gait normal - Psychiatric Psychiatric: appropriate mood/affect, intact judgment & insight, memory intact, cooperative - Labs CBC & Chem 7: 09/15/20 09:15 09/15/20 09:15 Medications & Allergies - Medications Allergies/Adverse Reactions: Allergies erythromycin base Allergy (Verified 09/12/20 11:50) Vomiting Sulfa (Sulfonamide Antibiotics) Allergy (Verified 09/12/20 11:50) Swelling Home Medications: Home Medications Medication Instructions Recorded Confirmed Last Taken Type Adult Probiotic 1 cap PO DAILY 07/21/20 09/12/20 09/18/20 History Alendronate Sodium/Vitamin D3 1 tab PO DAILY 07/21/20 09/12/20 09/18/20 History Cinnamon 1 cap PO DAILY 07/21/20 09/12/20 09/18/20 History Evening [place] Oil 1 cap PO DAILY 07/21/20 09/19/20 09/17/20 History Garlic 1 tab PO DAILY 07/21/20 09/12/20 09/18/20 History Geritol Complete Tablet 1 tab PO DAILY 07/21/20 09/12/20 09/18/20 History Immunicare Capsule 1 packet PO DAILY 07/21/20 09/12/20 09/18/20 History Lisinopril 5 mg NM DAILY 07/21/20 09/19/20 09/19/20 08:00 History Simvastatin 20 mg PO DAILY 07/21/20 09/12/20 09/18/20 History Tylenol 500 mg PO PRN PRN 07/21/20 09/12/20 09/18/20 History oxyCODONE /ACETAMINOPHEN [Percocet 1 tab PO Q6HR PRN #20 tablet 07/28/20 09/12/20 09/18/20 Rx 5/325] Active Medications: Generic Name Dose Route Start Last Admin Trade Name Freq PRN Reason Stop Dose Admin Acetaminophen 650 mg 09/19/20 14:42 Acetaminophen 325 Mg Tab PO Q6H PRN Pain MILD(1-3)/Fever >100.5/LIGHT Diphenhydramine HCl 25 mg 09/19/20 14:42 Diphenhydramine 25 Mg Cap PO Q8H PRN Itching Docusate Sodium 100 mg 09/19/20 22:00 Docusate Sodium 100 Mg Cap PO BID GALILEO Hydromorphone HCl 2 mg 09/19/20 14:42 Hydromorphone 2 Mg Tab PO Q6H PRN Pain , Severe (7-10) Lactated Ringer's 1,000 mls @ 125 mls/hr 09/19/20 14:45 Lactated Ringers IV DIRECT GALILEO Metoclopramide HCl 10 mg 09/19/20 14:42 Metoclopramide 10 Mg Tab PO Q6H PRN Nausea And Vomiting Morphine Sulfate 2 mg 09/19/20 14:43 Morphine 2 Mg/1 Ml Inj IV Q4H PRN Pain, Moderate (4-6) Ondansetron HCl 4 mg 09/19/20 14:42 Ondansetron 4 Mg/2 Ml Inj IV Q8H PRN N/V unrelieved by Zain Oxycodone/Acetaminophen 1 tab 09/19/20 14:42 Oxycodone /Acetaminophen 5-325mg Tab PO Q6H PRN Pain, Moderate (4-6) Sodium Chloride 10 ml 09/19/20 14:42 Sodium Chloride 0.9% 10 Ml Flush Syringe IV PRN PRN LINE FLUSH
[2020-09-20 13:36] VITALS: BP 112/62
== END 2020-09-20 14:06 | disposition home or self-care (01) ==
LOC: OR 09:42 → OB 14:42
PROVIDERS: ADMIT Surgery; ATTEND Surgery
DX: C50.411 Malignant neoplasm of upper-outer quadrant of right female breast (principal); Z20.822 Contact with and (suspected) exposure to COVID-19; I10 Essential (primary) hypertension; E78.00 Pure hypercholesterolemia, unspecified; Z98.890 Other specified postprocedural states
CPT/HCPCS: 19303; 36415; 64450; 80053; 85025; 88305; 88307; 88309; 96374; 96375; G0378; J0330; J0690; J1100; J1200; J2250; J2370; J2405; J2704; J2710; J3010; J7120; U0003

== ENCOUNTER 2020-11-03 11:20 | Outpatient (CLI) | payer MEDICARE ==
--- NOTE | 2020-11-03 12:55 | Mammography Report ---
DEXA BONE DENSITY SCAN INDICATION / CLINICAL INFORMATION: C50.911. 70 years Female COMPARISON: None available. LUMBAR SPINE, L1-L4: - Bone mineral density (BMD) = 0.893 g/cm2. - T-score = -1.4 - Z-score = 0.1 Change (%) since most recent prior (if available): None available. Left HIP, : - Bone mineral density (BMD) = 1.026 g/cm2. - T-score = 0.7 - Z-score = 1.2 Change (%) since most recent prior (if available): None available Change (%) since most recent prior (if available): None available. IMPRESSION: 1. WHO Classification: Osteopenia. Fracture Risk: Increased. Note: 10-Year Fracture Risk (FRAX) not reported. This DEXA unit lacks FRAX functionality. BMD Reporting Guidelines (ISCD, 2015) BMD Reporting in Postmenopausal Women and in Men Age 50 and Older - T-scores are preferred. - The WHO densitometric classification is applicable. BMD Reporting in Females Prior to Menopause and in Males Younger Than Age 50 - Z-scores, not T-scores, are preferred. This is particularly important in children. - A Z-score of -2.0 or lower is defined as below the expected range for age, and a Z-score above -2.0 is within the expected range for age. - Osteoporosis cannot be diagnosed in men under age 50 on the basis of BMD alone. - The WHO diagnostic criteria may be applied to women in the menopausal transition. http://www.iscd.org/official-positions/1074-ssdk-eplvzwjo-positions-adult/ Signer Name: Alvin Bonilla MD Signed: 11/03/2020 12:51 PM Workstation Name: [id number]
== END 2020-11-03 11:21 | disposition home or self-care (01) ==
LOC: MAMMO 11:20
PROVIDERS: ATTEND Internal Medicine Hematology & Oncology
DX: M85.88 Other specified disorders of bone density and structure, other site (principal); D05.11 Intraductal carcinoma in situ of right breast; C50.911 Malignant neoplasm of unspecified site of right female breast
CPT/HCPCS: 77080

== ENCOUNTER 2021-04-24 09:20 | Outpatient (CLI) | payer MEDICARE ==
--- NOTE | 2021-04-24 11:42 | Mammography Report ---
DIGITAL SCREENING MAMMOGRAM WITH TOMOSYNTHESIS WITH CAD, 04/24/2021 CLINICAL INFORMATION / INDICATION: Routine Screening Mammography. TECHNIQUE: Digital left 2D and 3D mammography with tomosynthesis was obtained in the craniocaudal an d mediolateral oblique projections. Computer-Aided Detection (CAD) analysis was used for interpretat ion of this study. COMPARISON: 04/09/2020 FINDINGS: Breast Density: The breasts are heterogeneously dense, which may obscure small masses. No dominant mass, suspicious calcifications, or architectural distortion in the left breast. Scarring with multiple tiny calcifications again seen in the left breast; however, the calcifications appear to have increased in number especially in the more superficial breast tissue which is located near the 12:00 position portion of the breast on the cc view. IMPRESSION: Increased number of tiny calcifications in the left breast near the 12:00 position. Follow up recommendation: Special View: Mag BI-RADS Category 0: Incomplete. Needs additional imaging evaluation and/or prior mammograms for katy rison. A "normal" or negative report should not discourage follow up or biopsy of a clinically significant f inding. A written summary of these findings will be mailed to the patient. The patient will be entered into a mammography reporting system which will generate a reminder letter for the patient's next appointmen t at the appropriate interval. The [employer] recommends yearly mammograms starting at age 40 and continuing as l man as a woman is in good health. Breast MRI is recommended for women with an approximate 20-25% or greater lifetime risk of breast cancer, including women with a strong family history of breast or ova herman cancer or who have been treated for Hodgkin's disease. Signer Name: Ramon Marion MD Signed: 04/24/2021 11:38 AM Workstation Name: [id number]
== END 2021-04-24 09:21 | disposition home or self-care (01) ==
LOC: SPVWC 09:20
PROVIDERS: ATTEND Surgery
DX: Z12.31 Encounter for screening mammogram for malignant neoplasm of breast (principal); N64.89 Other specified disorders of breast
CPT/HCPCS: 77063